=== PATIENT | female | born 1985 | race Caucasian/White ===

== ENCOUNTER 2016-12-15 19:26 | Emergency (ER) | payer OTHER, SELFPAY ==
--- NOTE | 2016-12-15 19:57 | EDM.PDOC ---
ED HPI GENERAL MEDICAL PROBLEM - General Chief Complaint: Abdominal Pain Stated Complaint: WATER BROKE??? Time Seen by Provider: 12/15/16 19:26 Source of Information: Reports: Patient History Limitations: Reports: No limitations - History of Present Illness INITIAL COMMENTS - FREE TEXT/NARRATIVE: 31 YO primagravida 35 weeks 2 days with twins who presents to ER with concerns of her "water breaking". Pt reports she was having minimal abdominal pain or cramping. Pt with care in [place] with Dr Seferino Vickers. Pt had last ultrasound done 3 weeks ago. Pt has had mild elevation in blood pressure but has been untreated with medications at this time. Onset Date: 12/15/16 Onset Time: 19:00 Duration: Hour(s): (1) Location: Reports: abdomen Quality: Reports: Ache Severity: mild Improves with: Reports: None Worsens with: Reports: None Associated Symptoms: Reports: no other symptoms - Related Data Allergies Allergy/AdvReac Type Severity Reaction Status Date / Time No Known Drug Allergies Allergy Cannot Verified 04/28/15 17:11 Remember Home Meds: Home Meds Ondansetron [Zofran ODT] 4 mg PO Q6H #10 tab.dis 04/28/15 [Rx] Past Medical History Other Oncologic History: in remission Social & Family History - Tobacco Use Smoking Status *Q: Former Smoker Years of Tobacco use: 8 Used Tobacco, but Quit: Yes Month Tobacco Last Used: 06 Second Hand Smoke Exposure: No - Recreational Drug Use Recreational Drug Use: No ED ROS GENERAL - Review of Systems Review Of Systems: See Below Constitutional: Reports: no symptoms HEENT: Reports: No symptoms Respiratory: Reports: No Symptoms Cardiovascular: Reports: No symptoms Endocrine: Reports: no symptoms GI/Abdominal: Reports: Abdominal pain : Reports: discharge Musculoskeletal: Reports: no symptoms Skin: Reports: no symptoms Neurological: Reports: No Symptoms Psychiatric: Reports: No symptoms Hematologic/Lymphatic: Reports: no symptoms ED EXAM - Physical Exam Exam: See Below Exam Limited By: No limitations General Appearance: alert, WD/WN, no apparent distress Ears: normal external exam, normal canal, hearing grossly normal, normal TMs Nose: normal inspection, normal mucosa, no blood Throat/Mouth: Normal inspection, Normal lips, Normal teeth, Normal gums, Normal oropharynx, Normal voice, No airway compromise Head: atraumatic, normocephalic Neck: normal inspection, supple, non-tender, full range of motion Respiratory/Chest: no respiratory distress, lungs clear, normal breath sounds, no accessory muscle use, chest non-tender Cardiovascular: normal peripheral pulses, regular rate, rhythm, no edema, no gallop, no JVD, no murmur, no rub GI/Abdominal: Normal Bowel Sounds, Soft, Non-Tender, No Organomegaly, No Distention, No Abnormal Bruit, No Mass (Female) Exam: Cervical dilatation (5cm), Enlarged uterus, Vaginal discharge. No: Vaginal bleeding Back Exam: normal inspection, full range of motion, NT Extremities: normal inspection, normal range of motion, non-tender, normal capillary refill, no pedal edema Neurological: alert, oriented, CN II-XII intact, normal cognition, normal gait, normal reflexes, no motor/sensory deficits Psychiatric: normal affect, normal mood Skin Exam: Warm, Dry, Intact, Normal color, No rash Lymphatic: no adenopathy Course - Orders/Labs/Meds Orders: Active Orders 24 hr Category Date Time Status FERN TEST [BF] Stat Lab 12/15/16 19:50 Uncollected Labs: Laboratory Tests 12/15/16 Range/Units 19:45 Amniotic Ferning Test Negative Departure - Departure Time of Disposition: 19:58 Disposition: DC/Tfer to Acute Hospital 02 Condition: good Clinical Impression: labor Qualifiers: labor trimester: third trimester labor delivery status: without delivery Qualified Code(s): O60.03 - labor without delivery, third trimester - Discharge Information Forms: Interfacility Transfer EMTALA - My Orders Last 24 Hours: My Active Orders 12/15/16 19:50 FERN TEST [BF] Stat - Assessment/Plan Last 24 Hours: My Active Orders 12/15/16 19:50 FERN TEST [BF] Stat Assessment:: 1. possible ruptured membranes 2. cervical dilation 3. delivery Plan: 1. Discussed case with Dr Seferino Vickers- BUSINESS SYSTEMS ADMINISTRATOR who cares for patient and he is requestinga transfer to [place] due to and need for possible NICU 2. transfer to [facility]- Dr Sanchez 3. ampicillin for prophylactic antibiotic coverage
[2016-12-15] MEDS ORDERED: Ampicillin 1 GM in Sodium Chloride 0.9% 50 ML IV ONE (20:20)
[2016-12-16 01:21] VITALS: BP 148/86
--- NOTE | 2016-12-16 08:30 | CONS ---
DATE OF CONSULTATION: CONSULTING PHYSICIAN: Pool Marie MD REQUESTING PHYSICIAN: PATIENT PROFILE: The patient is a 31-year-old white female, who presented to the emergency room to see KELSEA Cline. The patient is approximately 35.1 weeks and she has been expecting twins. She is being followed by OB at [place], [place]. She came today because of passing a small quantity of clear fluid and suspected that she might have ruptured her membranes. She had some back pain, but no active abdominal pain as such. No fever. The patient states that her checkups had been in [place], [place], and she has been going there almost on a weekly basis. Her attending physician, Dr. Vickers. The patient states that this is her first . Apparently, she has been having some blood pressure problems, but has not been started on any medication. Only home medication is ondansetron. PAST MEDICAL HISTORY: Nil significant according to the patient. PAST SURGICAL HISTORY: Unknown at this time. PAST IMMUNIZATION HISTORY: Unknown. REVIEW OF SYSTEMS: HEAD AND NECK: No complaints. ENT: No complaints. HEART: No complaints. ABDOMEN: Complains of no abdominal cramping or labor pain. Feel babies move quite well. Complains of back pain. MUSCULOSKELETAL SYSTEM: Complains of edema of the lower extremities. NEUROLOGIC: No complaints. UROLOGICAL: No complaints. UPHOLSTERY RESTORER HISTORY: The patient states that she passed a small quantity of clear fluid approximately a cup. She is a G1 , P0 PHYSICAL EXAMINATION: GENERAL: Reveals a pleasant lady, in no immediate distress. VITAL SIGNS: Her vital signs are stable. Blood pressure 148/82, pulse is 72, respirations 84, temperature is normal. HEAD: Negative. EYES: Negative. NECK: Supple. Full range of motion. No midline swellings. HEART: Stable rhythm. No thrills. No murmurs. LUNGS: Clear to percussion auscultation. ABDOMEN: Large and is fairly good edema of the abdominal wall noted. EXTREMITIES: Lower extremities revealed 1+ pitting edema. SPECULUM EXAMINATION: Reveals a small quantity mucus. No amniotic fluid or blood is noticed. STERILE TECHNIQUE VAGINAL EXAMINATION: Revealed cervix to about 5 cm. Membranes appear to be intact. Baby's head is presenting by vertex. Abdominal ultrasound reveals twin pregnancies. First baby is coming by vertex. Second baby is present to the left side also by vertex. The placenta is located in the fundus. No complication noted. Septum is noted between the two pregnancies. heart could not be adequately detected; however, ultrasound showed heart of the first fetus to be about 160 and second fetus to be at 150. Both are regular. No contractions are observed. FINAL DIAGNOSIS: Primigravida approximately 35 weeks being followed in [place] for her checkups. Currently in active labor. The patient is 5 cm dilated with a thin cervix. Twin . First baby vertex, second baby vertex. Placenta is fundal in nature. No complication noted so far except for possible rupture of membranes. PLAN: We will consult with UPHOLSTERY RESTORER and give her antibiotics and sent the patient as quickly as possible to [place]. The patient has been informed about this treatment. Also discussed management with KELSEA Cline. Thank you very much for this consultation. /[id number]/MODL MTDD
== END 2016-12-15 20:30 ==
LOC: KA.ED 19:26
DX: O60.03 Preterm labor without delivery, third trimester (principal); Z87.891 Personal history of nicotine dependence; Z3A.35 35 weeks gestation of pregnancy
CPT/HCPCS: 82274; 96374; 99285; J0290; J7050